=== PATIENT | female | born 1980 | race Caucasian/White ===

== ENCOUNTER 2019-08-01 20:38 | Emergency (ER) | payer OTHER, SELFPAY ==
[2019-08-01 20:46] VITALS: BP 154/79; PULSE 64; RESP 16; TEMP 36.6; O2SAT 100; BMI 30.5
--- NOTE | 2019-08-01 20:49 | DI.RAD.S_ITS ---
PROCEDURE: XR CHEST 1V INDICATIONS: chest pain TECHNIQUE: One view of the chest was acquired. COMPARISON: None. FINDINGS: Surgical changes and devices: None. Lungs and pleura: Mild diffuse interstitial prominence. No focal consolidation. No pneumothorax or pleural effusion. Mediastinum: Mediastinal contours appear normal. Heart size is normal. Bones and chest wall: No suspicious bony lesions. Overlying soft tissues appear unremarkable. IMPRESSION: Mild diffuse interstitial prominence without focal airspace disease or pleural effusion. Findings may represent an infectious/inflammatory process versus early pulmonary edema. Consider dedicated PA and lateral chest radiograph when patient is able. Dictated by: Rick Page M.D. on 08/01/2019 at 21:23 Approved by: Rick Page M.D. on 08/01/2019 at 21:27
--- NOTE | 2019-08-01 20:55 | ED.CHESTPAIN ---
HPI - Chest Pain General Chief Complaint: Chest Pain Stated Complaint: chest pain Time Seen by Provider: 08/01/19 20:45 Source: patient Mode of arrival: Family Vehicle Limitations: no limitations History of Present Illness HPI narrative: Patient is a 39-year-old female who presents with chest discomfort. She says that she has sharp shooting chest pain starting in the center of her chest and radiating outwards lasting only seconds ongoing for last 2 days. She works as a fuller brush worker actually started yesterday she took some Aleve she was seen evaluated at [facility] she said that she had testing done and it was negative. However it started again today and is concerned. She does have a history of anxiety however she says that this feels much different than her anxiety. MD complaint: chest pain Onset (ago): day(s) Duration: intermittent Pain location: substernal Severity: mild Quality: sharp Pain radiation: none Relieving factors: nothing Exacerbating factors: nothing Review of Systems Review of Systems Narrative: GENERAL: Denies chills, fatigue, malaise, fever, sweats, travel HEENT: Denies sinus pain, ear pain, sore throat, difficulty swallowing, neck pain RESPIRATORY: Denies dyspnea, cough, wheezing, hemoptysis, sputum. CARDIOVASCULAR: See HPI GASTROINTESTINAL: Denies nausea, vomiting, abdominal pain, diarrhea, constipation, melena. : Denies dysuria, frequency, incontinence, hematuria, urinary retention, flank pain. MUSCULOSKELETAL: Denies weakness, joint pain, or bony pain SKIN: No rash, no erythema, no pruritus NEUROLOGIC: Denies weakness, dizziness, headache, numbness, change in speech, confusion PSYCHIATRIC: No concerning psychosocial issues. 12 point review of systems is negative except for those stated above and HPI Patient History Medical History Anxiety (Acute) Social History Smoking Status: Never smoker Smoking Status: Never smoker Substance Use Type: does not use Exam Initial Vital Signs Initial Vital Signs: Vital Signs Temperature 97.8 F 08/01/19 20:46 Pulse Rate 64 08/01/19 20:46 Respiratory Rate 16 08/01/19 20:46 Blood Pressure 154/79 H 08/01/19 20:46 Pulse Oximetry 100 08/01/19 20:46 GENERAL: Well-appearing, well-nourished and in no acute distress. HEENT: Head atraumatic,EOMI, pupils reactive, face symmetric, moist mucous membranes CARDIOVASCULAR: Regular rate and rhythm without murmurs, rubs or gallops. RESPIRATORY: Breath sounds equal bilaterally, no wheezes rales or rhonchi. ABDOMEN: Soft, nontender. Normoactive bowel sounds all 4 quadrants. No guarding or rebound. EXTREMITIES: Normal range of motion, no clubbing or edema. Neurovascularly intact NEUROLOGICAL: Alert and oriented x4.Normal gait and speech. Cranial nerves II through XII grossly intact. SKIN: Warm, dry, no laceration, no petechiae, no rashes or lesions. Scores HEART Score Heart Score history: Slightly Suspicious Heart Score EKG: Normal Heart Score Age: < 45 years old Heart Score risk factors: No known risk factors Heart Score troponin: < or = to normal limit Heart Score Total: 0 Course Orders Ordered: ED Orders 08/01/19 20:49 XR chest 1V Stat EKG-12 Lead Stat 08/01/19 20:50 Complete Blood Count AUTO DIFF Stat Comprehensive Metabolic Panel Stat Lipase Stat Partial Thromboplastin Time Stat Prothrombin Time INR Stat Troponin & CK Cardiac Panel Stat Discontinued Medications Ketorolac Tromethamine (Toradol) 30 mg IV NOW ONE Stop: 08/01/19 21:09 Last Admin: 08/01/19 21:23 Dose: 30 mg Documented by: ARRINGTO Vital Signs Vital signs: Vital Signs - 8 hr 08/01/19 20:46 08/01/19 21:19 08/01/19 22:26 Temperature 97.8 F Pulse Rate 64 52 L 54 L Respiratory Rate 16 17 15 Blood Pressure 154/79 H Blood Pressure [Right Arm] 120/77 96/53 L Pulse Oximetry 100 100 100 08/01/19 22:31 Temperature Pulse Rate 56 L Respiratory Rate 19 Blood Pressure Blood Pressure [Right Arm] 104/54 L Pulse Oximetry 100 MDM - Chest Pain Lab Data Attestation: I reviewed the patient's lab results. Result diagrams: 08/01/19 20:50 08/01/19 20:50 Labs: Lab Results 08/01/19 08/01/19 08/01/19 Range/Units 20:50 20:50 20:50 WBC 9.0 (4.5-11.0) X10^3/uL RBC 4.38 (4.0-5.2) X10^6/uL Hgb 14.2 (12.0-16.0) g/dL Hct 40.8 (36-46) % MCV 93.2 (80-100) fL MCH 32.5 (26-34) PG MCHC 34.8 (30-36) % RDW 12.4 (11.6-14.8) % Plt Count 186 (150-400) X10^3/uL Neut % (Auto) 53.2 (50-75) % Lymph % (Auto) 35.9 (25-40) % [place] % (Auto) 8.9 (3-14) % Eos % (Auto) 1.6 L (2-4) % Baso % (Auto) 0.4 (0-2) % Neut # (Auto) 4800 (7651-8444) /uL Lymph # (Auto) 3200 (0416-2051) /uL [place] # (Auto) 800 (0-900) /uL Eos # (Auto) 100 (0-450) /uL Baso # (Auto) 0 (0-100) /uL PT 12.3 (10.1-12.7) SECONDS INR 1.1 (0.9-1.3) APTT 32 (26.4-36.2) SECONDS Sodium 138 (137-145) mmol/L Potassium 3.8 (3.4-5.1) mmol/L Chloride 100 (98-107) mmol/L Carbon Dioxide 30 (22-32) mmol/L BUN 11 (7-17) mg/dL Creatinine 0.70 (0.52-1.04) mg/dL Estimated GFR > 60.0 (>60) mL/min BUN/Creatinine Ratio 15.7 (6-22) Glucose 98 (70-100) mg/dL Calcium 9.8 (8.4-10.2) mg/dL Total Bilirubin 0.6 (0.2-1.3) mg/dL AST 24 (14-36) IU/L ALT 22 (<35) IU/L Alkaline Phosphatase 40 (38-126) U/L Total Creatine Kinase 53 (30-135) U/L CK-MB (CK-2) TNP CK-MB (CK-2) Rel Index TNP Troponin I < 0.012 (0.01-0.034) ng/mL Total Protein 7.8 (6.3-8.2) g/dL Albumin 4.8 (3.5-5.0) g/dL Globulin 3.0 (1.7-4.1) g/dL Albumin/Globulin Ratio 1.6 (1.0-2.8) Lipase 49 (23-300) U/L Imaging Data Chest x-ray: Radiologist's impression: PROCEDURE: XR CHEST 1V INDICATIONS: chest pain TECHNIQUE: One view of the chest was acquired. COMPARISON: None. FINDINGS: Surgical changes and devices: None. Lungs and pleura: Mild diffuse interstitial prominence. No focal consolidation. No pneumothorax or pleural effusion. Mediastinum: Mediastinal contours appear normal. Heart size is normal. Bones and chest wall: No suspicious bony lesions. Overlying soft tissues appear unremarkable. IMPRESSION: Mild diffuse interstitial prominence without focal airspace disease or pleural effusion. Findings may represent an infectious/inflammatory process versus early pulmonary edema. Consider dedicated PA and lateral chest radiograph when patient is able. Dictated by: Rick Page M.D. on 08/01/2019 at 21:23 Approved by: Rick Page M.D. on 08/01/2019 at 21:27 ECG Data Attestation: I personally reviewed and interpreted this ECG as follows: Prior ECG tracings: not available for review Interpretation: Normal sinus rhythm rate 64 p.r. interval [address] elevation depression or T-wave inversion MDM Narrative Medical decision making narrative: Patient sinus symptoms are more consistent with musculoskeletal pain rather than cardiac. It's been ongoing for 48 hours, she had a negative workup at [facility] yesterday reviewed records. She again has a negative chest x-ray and troponin. She is given Toradol which seemed to help a for pain. Discharge Plan Departure Patient Disposition: Home Clinical Impression: Costalchondritis Discharge Date/Time: 08/01/19 22:46 Instructions: DI for Costochondritis Activity Restrictions/Additional Instructions: *You have been diagnosed with costochondritis *What to do: Blood work x-ray an EKG today are all reassuring. This is likely a strain between your ribs. This can take a number of weeks to heal. Recommend resting, ice or heat as needed *Continue to take medications as directed Ibuprofen 800 mg every 8 hours with food if needed for pain for up to 2 weeks *Follow up with your primary care provider in 2-3 days *Return to ER if you should have increasing pain shortness of breath or any new, worsening or concerning symptoms Referrals: Janet Forbes DO [Primary Care Provider] -
[2019-08-01 20:57] LABS: Add Manual Diff / Slide Review NO; Basophils Absolute Auto 0 /uL (0-100); Basophils Percent Auto 0.4 % (0-2); Eosinophils Absolute Auto 100 /uL (0-450); Eosinophils Percent Auto 1.6 % (2-4); Hematocrit 40.8 % (36-46); Hemoglobin 14.2 g/dL (12.0-16.0); Lymphocytes Absolute Auto 3200 /uL (1100-4500); Lymphocytes Percent Auto 35.9 % (25-40); Mean Corpuscular HGB Conc 34.8 % (30-36); Mean Corpuscular Hemoglobin 32.5 PG (26-34); Mean Corpuscular Volume 93.2 fL (80-100); Monocytes Absolute Auto 800 /uL (0-900); Monocytes Percent Auto 8.9 % (3-14); Neutrophils Absolute Auto 4800 /uL (1500-7000); Neutrophils Percent Auto 53.2 % (50-75); Platelet Count 186 X10^3/uL (150-400); Red Blood Cell Count 4.38 X10^6/uL (4.0-5.2); Red Cell Distribution Width 12.4 % (11.6-14.8)
[2019-08-01 21:03] LABS: INR 1.1 (0.9-1.3); Prothrombin Time 12.3 SECONDS (10.1-12.7)
[2019-08-01 21:05] LABS: PTT Partial Thromboplastin Tim 32 SECONDS (26.4-36.2)
[2019-08-01 21:09] LABS: Alanine Aminotransferase 22 IU/L (<35); Albumin 4.8 g/dL (3.5-5.0); Albumin Globulin Ratio 1.6 (1.0-2.8); Alkaline Phosphatase 40 U/L (38-126); Aspartate Aminotransferase 24 IU/L (14-36); BUN Creatinine Ratio 15.7 (6-22); Bilirubin Total 0.6 mg/dL (0.2-1.3); Blood Urea Nitrogen 11 mg/dL (7-17); Calcium 9.8 mg/dL (8.4-10.2); Carbon Dioxide 30 mmol/L (22-32); Chloride 100 mmol/L (98-107); Creatine Kinase 53 U/L (30-135); Estimated Glomerular Filt Rate > 60.0 mL/min (>60); Glucose 98 mg/dL (70-100); HEMOLYSIS 18 (0-50); Lipase 49 U/L (23-300); Potassium 3.8 mmol/L (3.4-5.1); Sodium 138 mmol/L (137-145); Total Protein 7.8 g/dL (6.3-8.2)
[2019-08-01 21:19] VITALS: BP 120/77; PULSE 52; RESP 17; O2SAT 100
[2019-08-01 21:20] LABS: Troponin I < 0.012 ng/mL (0.01-0.034)
[2019-08-01] MEDS: KETOROLAC 60 MG/2 ML VIAL 30 MG IV (21:23)
[2019-08-01 22:26] VITALS: BP 96/53; PULSE 54; RESP 15; O2SAT 100
[2019-08-01 22:31] VITALS: BP 104/54; PULSE 56; RESP 19; O2SAT 100
== END 2019-08-01 22:46 | disposition home or self-care (01) ==
PROVIDERS: Emergency Provider Emergency Medicine; Family Provider Family Medicine; PCP Family Medicine
DX: M94.0 Chondrocostal junction syndrome [Tietze] (principal)
CPT/HCPCS: 36415; 71045; 80053; 82550; 83690; 84484; 85025; 85610; 85730; 93005; 93010; 96374; 99284; 99285; J1885